=== PATIENT | male | born 2005 | race Caucasian/White ===

== ENCOUNTER → 2024-12-26 15:00 | Outpatient (REF) | payer OTHER, SELFPAY | LOC: HWRAD 15:00 | PROVIDERS: ATTENDING PHYSICIAN Student in an Organized Health Care Education/Training Program | DX: I16.0 Hypertensive urgency (principal); R44.9 Unspecified symptoms and signs involving general sensations and perceptions; F41.9 Anxiety disorder, unspecified | CPT/HCPCS: 70450 ==

== ENCOUNTER → 2025-01-06 19:54 | Outpatient (REF) | payer OTHER, SELFPAY | LOC: MRI 3T 19:54 | PROVIDERS: ATTENDING PHYSICIAN Student in an Organized Health Care Education/Training Program | DX: R93.0 Abnormal findings on diagnostic imaging of skull and head, not elsewhere classified (principal) | CPT/HCPCS: 70553; A9575 ==